=== PATIENT | male | born 1975 | race Caucasian/White ===

== ENCOUNTER 2016-07-28 15:26 | Emergency (ER) | payer OTHER ==
[~2016-07-28 15:26] MED LIST: AUGMENTIN 500M500 MG PO; AUGMENTIN 875875 MG PO; BENZONATATE200 M1 PO; DIVALPROEX SOD250 M1 PO; FLEXERIL10 MG PO; GABAPENTIN300 M2 PO; HYDROCODONE/ACE1 TA1; KEFLEX500 MG PO; LATUDA20 M1 PO; LIORESAL 10MG T10 MG PO; MEDROL4 M1 PO; METHADONE HCL10 M1 PO; MIRTAZAPINE15 M2 PO; MOTRIN800 MG PO; NARCAN4 MG NASB; NYSTATIN100000 UNI PO; PERCOCET 325 MG1 TA2 PO; PROAIR HFA0.09 MG/Ac INH; PROTONIX 40MG T40 MG PO; PROVENTIL HFA6.7 GM INH; REMERON30 MG PO; TRAMADOL50 MG PO; ULTRAM(MONOGRAP50 MG PO; VIBRAMYCIN100 MG PO; ZITHROMAX Z PA250 MG PO; ZITHROMAX250 M2 PO
[2016-07-28 15:44] VITALS: BP 139/83
--- NOTE | 2016-07-28 16:23 | ED GENERAL ADULT ---
History of Present Illness General Chief Complaint: General Adult Stated Complaint: PT IS HERE FOR RX Source: patient Exam Limitations: no limitations Vital Signs & Intake/Output Vital Signs & Intake/Output Vital Signs Date Time Temp Pulse Resp B/P B/P Pulse O2 O2 Flow FiO2 Mean Ox Delivery Rate 07/28 1640 Room Air 07/28 1544 97.6 90 22 139/83 98 Allergies Coded Allergies: hydrocodone (GI UPSET 05/21/15) quetiapine (From SEROQUEL) (RESTLESS LEGS 05/21/15) venlafaxine (HALLUCINATIONS 05/21/15) Reconcile Medications Clonazepam (Klonopin) 0.5 MG TABLET 1 TAB PO TID ANXIETY (Reported) Clonazepam (Klonopin) 0.5 MG TABLET 1 TAB PO TID PRN ANXIETY Gabapentin (Unknown Strength) CAPSULE (Unknown Dose) PO QAM MENTAL HEALTH ( Reported) Gabapentin (Unknown Strength) CAPSULE (Unknown Dose) PO QPM MENTAL HEALTH ( Reported) Gabapentin 400 MG CAPSULE 1 CAP PO AD MOOD DISORDER 1 TAB IN THE AM 2 TABS IN THE PM Lurasidone HCl (Latuda) 20 MG TABLET 1 TAB PO DAILY MENTAL HEALTH (Reported) Lurasidone HCl (Latuda) 20 MG TABLET 1 TAB PO QPM MOOD DISORDER Mirtazapine (Unknown Strength) TABLET (Unknown Dose) PO QPM SLEEP (Reported) Mirtazapine 15 MG TABLET 1 TAB PO QPM MOOD DISORDER Prazosin HCl 1 MG CAPSULE 1 CAP PO QPM PTSD/NIGHTMARES (Reported) Prazosin HCl 1 MG CAPSULE 1 CAP PO QPM MOOD DISORDER Triage Note: PER PT RAN OUT OF PSYCH MEDS PER PT LONG PROCESS TO GET BACK ON THEM FROM [place] LATUDA, REM[place]ON, 0.5 MG CLONAZAPAM SENT BY [employer] PER PT DOG HAS MANGE NOW MY HAIR IS FALLING OUT Triage Nurses Notes Reviewed? yes Onset: Gradual Duration: constant Timing: recent history Severity: moderate Severity Numbers: 5 HPI: Patient is a 41-year-old male with a past medical history bipolar disorder, anxiety and PTSD who states that he has been unmedicated for approximate 6-8 months where he has a follow-up appointment with [facility] on August 06 however he does not have a follow-up appointment with [facility] until September 07 for an actual prescriber of medication refills. Patient does bring a list of medications that he was previously on. Patient states that he was advised by his control systems drafting officer today to present to emergency room for readministration of his meds. Patient denies any illness denies any auditory or visual hallucinations and denies any suicide or homicidal ideation. (YAMINI THOMAS) Past History Travel History Traveled to [place] past 21 day No Medical History Any Pertinent Medical History? 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 No (YAMINI THOMAS) Review of Systems Review of Systems Constitutional: Reports: no symptoms. EENTM: Reports: no symptoms. Respiratory: Reports: no symptoms. Cardiovascular: Reports: no symptoms. GI: Reports: no symptoms. Genitourinary: Reports: no symptoms. Musculoskeletal: Reports: no symptoms. Skin: Reports: no symptoms. Neurological/Psychological: Reports: see HPI, anxiety. Hematologic/Endocrine: Reports: no symptoms. Immunologic/Allergic: Reports: no symptoms. All Other Systems: Reviewed and Negative (YAMINI THOMAS) Physical Exam Physical Exam General Appearance: no apparent distress, alert, comfortable Comments: Well-developed well-nourished person in no acute distress HEENT: Normal EENT exam, extraocular motion intact, no nystagmus. Pupils equally round and reactive to light and accommodation. Nose is atraumatic. External auditory canal and Tympanic membranes clear. Pharynx normal. No swelling or edema. Neck: Supple, no lymphadenopathy, normal range of motion without pain or tenderness Back: Nontender, no CVA tenderness Cardiovascular: Regular rate and rhythms no murmurs rubs or gallops, normal JVP Respiratory: Chest nontender. No respiratory distress.breath sounds clear to auscultation bilaterally Abdomen: Soft, nontender nondistended, no appreciable organomegaly. Normal bowel sounds. No ascites Extremity: No edema, no calf tenderness to palpation, normal and equal pulses. Neuro: Alert oriented x3, motor sensory normal, cranial nerves II through XII grossly intact. Skin: No appreciable rash on exposed skin, skin is warm and dry. Psych: Mood and affect is normal, memory and judgment is normal. Core Measures ACS in differential dx? No CVA/TIA Diagnosis: No Severe Sepsis Present: No Septic Shock Present: No (YAMINI THOMAS) Progress Differential Diagnoses I considered the following diagnoses in my evaluation of the patient: [Anxiety, depression, mood disorder, medication refill, bipolar] Plan of Care: Patient was in no apparent distress denies any current illness denies any homicidal or suicidal ideation I tried to call [facility] in which they did not have any sooner appointments for patient. I strongly advised patient to begin medications and to return to emergency room if symptoms worsen Initial ED EKG: none (YAMINI THOMAS) Departure Departure Disposition: HOME OR SELF CARE Condition: Stable Clinical Impression Primary Impression: Bipolar disorder Secondary Impressions: Anxiety Referrals: SHAHRZAD GERONIMO,MIGUELITO [place] (PCP/Family) Additional Instructions: As discussed begin the prescription of Klonopin, gabapentin, mirtazapine, latuda and prazosin as directed. Prescription is waiting at [facility]. Follow up with your care provider as you have an appointment. If symptoms worsen return to emergency room Departure Forms: Customer Survey General Discharge Information Prescriptions: Current Visit Scripts Clonazepam (Klonopin) 1 TAB PO TID PRN ANXIETY #42 TAB Mirtazapine 1 TAB PO QPM #30 TAB Gabapentin 1 CAP PO AD #60 CAP 1 TAB IN THE AM 2 TABS IN THE PM Lurasidone HCl (Latuda) 1 TAB PO QPM #30 TAB Prazosin HCl 1 CAP PO QPM #30 CAP (YAMINI THOMAS) PA/MANAGER OF HOSPITAL Co-Sign Statement Statement: ED Attending supervision documentation- [] I saw and evaluated the patient. I have also reviewed all the pertinent lab results and diagnostic results. I agree with the findings and the plan of care as documented in the PA's/MANAGER OF HOSPITAL's documentation. x I have reviewed the ED Record and agree with the PA's/MANAGER OF HOSPITAL's documentation. [] Additions or exceptions (if any) to the PAs/MANAGER OF HOSPITAL's note and plan are summarized below: [] (BOLA GERONIMO,SHASHA) Critical Care Note Critical Care Note Critical Care Time: non-applicable (YAMINI THOMAS)
[2016-07-28] MEDS ORDERED: LATUDA20 M1 PO ×2 (16:37→17:01)
[2016-07-28] MEDS ORDERED: MIRTAZAPINE15 M2 PO ×2 (16:38→17:01)
[2016-07-28] MEDS ORDERED: PRAZOSIN HCL1 M1 PO ×2 (16:38→17:01)
[2016-07-28] MEDS ORDERED: GABAPENTIN400 M2 PO ×2 (16:39→17:01)
[2016-07-28] MEDS ORDERED: GABAPENTIN300 M2 PO (16:40)
[2016-07-28] MEDS ORDERED: KLONOPIN0.5 M1 PO ×2 (16:41→17:01)
== END 2016-07-28 17:09 ==
LOC: ERH 15:26
DX: F31.9 Bipolar disorder, unspecified (principal); F41.9 Anxiety disorder, unspecified
CPT/HCPCS: 99281